=== PATIENT | male | born 1975 ===

== ENCOUNTER 2017-03-28 11:03 | Emergency (ER) | payer OTHER, SELFPAY ==
[2017-03-28 11:11] VITALS: BMI 29.9
[2017-03-28 11:45] VITALS: TEMP 98.9
--- NOTE | 2017-03-28 12:33 | ED PDOC ---
HPI: General Adult Time Seen by Provider: 03/28/17 11:18 Chief Complaint (Nursing): Chest Pain Chief Complaint (Provider): Chest Pain History Per: Patient History/Exam Limitations: no limitations Additional Complaint(s): 41 year old male with a past medical history of diabetes and hypertension who presents to the emergency department with a complaint of a chest "cramping" sensation that radiates all over the abdomen region with bilateral arm soreness for 3 days. Associated with lower back cramping, dizziness, lightheadedness, and a "heavy" head feeling. Patient is worried these are symptoms of a heart attack which is why he came to the emergency room. States Motrin helped with pain. Denies cough, urinary symptoms, or chest pain. Reports he had a fever which had resolved since. Of note, patient states on around 3pm he was taking a nap when he felt sudden shortness of breath with right back cramping pain while lying down. Past Medical History Reviewed: Historical Data, Nursing Documentation, Vital Signs Vital Signs: Last Vital Signs Temp 98.9 F 03/28/17 11:44 Pulse 76 03/28/17 17:09 Resp 17 03/28/17 17:09 BP 111/67 03/28/17 17:09 Pulse Ox 98 03/28/17 17:09 - Medical History PMH: Diabetes, HTN - Surgical History Surgical History: No Surg Hx - Family History Family History: States: No Known Family Hx - Allergies Allergies/Adverse Reactions: Allergies Allergy/AdvReac Type Severity Reaction Status Date / Time No Known Allergies Allergy Verified 03/28/17 11:13 Review of Systems ROS Statement: Except As Marked, All Systems Reviewed And Found Negative (As per HPI otherwise negative) Constitutional: Positive for: Fever (subjective), Other ("Heavy" head) Cardiovascular: Positive for: Other (Chest "cramps"). Negative for: Chest Pain Respiratory: Negative for: Cough Gastrointestinal: Positive for: Abdominal Pain (Cramps over the abdomen region) Genitourinary Male: Negative for: Dysuria, Frequency, Incontinence, Hematuria Musculoskeletal: Positive for: Back Pain (Cramps), Other (Bilateral arm soreness ) Neurological: Positive for: Dizziness (lightheadedness) Physical Exam - Reviewed Nursing Documentation Reviewed: Yes Vital Signs Reviewed: Yes - Physical Exam Appears: Positive for: Non-toxic, No Acute Distress Head Exam: Positive for: NORMAL INSPECTION, NORMOCEPHALIC Skin: Positive for: Normal Color, Warm, Dry Neck: Positive for: Normal, Supple Cardiovascular/Chest: Positive for: Regular Rate, Rhythm. Negative for: Murmur Respiratory: Positive for: Normal Breath Sounds. Negative for: Accessory Muscle Use, Wheezing, Respiratory Distress Gastrointestinal/Abdominal: Positive for: Normal Exam, Soft. Negative for: Tenderness Back: Positive for: Normal Inspection. Negative for: L CVA Tenderness, R CVA Tenderness Extremity: Positive for: Normal ROM. Negative for: Pedal Edema Neurologic/Psych: Positive for: Alert, Oriented (x3) - Laboratory Results Result Diagrams: 03/28/17 13:02 03/28/17 13:02 - ECG ECG: Positive for: Interpreted By Me, Viewed By Me ECG Rhythm: Positive for: Normal QRS, Normal ST Segment, Sinus Rhythm, Sinus Tachycardia Interpretation Of Abn EKG: LAD Rate: 101 O2 Sat by Pulse Oximetry: 99 (RA) Pulse Ox Interpretation: Normal Medical Decision Making Medical Decision Making: Time: 1223 Initial Impression: Chest pain and body aches. Differential includes acute coronary syndrome, pulmonary embolism, and musculoskeletal pain Initial Plan: EKG BMP Troponin I CBC w/ diff D Dimer Toradol 30 mg IVP Chest x-ray reevaluation EKG: Sinus tachycardia at 101 bpm with left axis deviation. Normal QRS. Normal ST segment. Time: 1302 --D-Dime, Quantitative: 141 --Troponin I: < 0.0120 --Random Glucose: 210 (High) Time: 1445 --Chest x-ray FINDINGS: LUNGS: Clear. PLEURA: No pneumothorax or pleural fluid seen. CARDIOVASCULAR: No radiographic findings to suggest acute or significant cardiovascular disease. OSSEOUS STRUCTURES: No significant abnormalities. VISUALIZED UPPER ABDOMEN: Normal. OTHER FINDINGS: None. IMPRESSION: No active disease. Scribe~Attestation: Documented by Xiao Stevens, acting as a scribe for Mejia Mar MD. Provider Scribe~Attestation: All medical record entries made by the Scribe were at my direction and personally dictated by me. I have reviewed the chart and agree that the record accurately reflects my personal performance of the history, physical exam, medical decision making, and the department course for this patient. I have also personally directed, reviewed, and agree with the discharge instructions and disposition. Disposition - Clinical Impression Clinical Impression: Chest pain, Arthralgia - Patient ED Disposition Is Patient to be Admitted: No Doctor Will See Patient In The: Office Counseled Patient/Family Regarding: Studies Performed, Diagnosis, Need For Followup - Disposition Referrals: [facility] [Outside] Disposition: Routine/Home Disposition Time: 16:34 Condition: GOOD Additional Instructions: Return for worsening. Follow up with your PCP in 2-3 days. Instructions: Chest Pain (ED) Print Language: CZECH FEDERICO Risk Score for UA/NSTEMI - FEDERICO Risk Score Age > 64: NO 3 or more CAD Risk Factors: NO Known CAD (Stenosis greater than 50%): NO Aspirin use in past 7 days: NO Severe Angina: NO EKG ST changes greater than 0.5mm: NO Positive Cardiac Marker: NO FEDERICO Score: 0 % risk at 14 days of: all cause mortality, new or recurrent NM, or severe recurrent ischemia requiring urgen revascularization: 5% Wells Criteria for PE - Wells Criteria for Pulmonary Embolism Clinical Signs and Symptoms of DVT: No P.E is #1 Diagnosis, or Equally Likely: No Heart Rate >100: No Immobilization at least 3 days;Surgery previous 4 weeks: No Previous, objectively diagnosed PE or DVT: No Hemoptysis: No Malignancy w/treatment within 6 months, or palliative: No Total Score: 0
[2017-03-28 13:09] LABS: BASO % 0.5 % (0.0-2.0); EOS % 0.1 % (0.0-4.0); HEMOGLOBIN 15.7 g/dL (12.0-18.0); MEAN CELL VOLUME 84.9 fl (80.0-94.0); MEAN CORPUSCULAR HEMOGLOBIN 28.4 pg (27.0-31.0); MEAN CORPUSCULAR HGB CONC 33.4 g/dL (33.0-37.0); MEAN PLATELET VOLUME 9.7 fl (7.2-11.7); MONO # 0.4 K/uL (0.0-0.8); MONO % 4.5 % (0.0-10.0); NEUT # 8.3 K/uL (1.8-7.0); NEUT % 84.9 % (50.0-75.0); RBC 5.52 Mil/uL (4.40-5.90); RED CELL DISTRIBUTION WIDTH 13.2 % (11.5-14.5); WHITE BLOOD COUNT 9.7 K/uL (4.8-10.8)
[2017-03-28 13:21] LABS: BLOOD UREA NITROGEN 8 mg/dl (9-20); CALCIUM 9.6 mg/dL (8.4-10.2); GFR AFRICAN-AMERICAN > 60; GFR NON-AFRICAN AMERICAN > 60
--- NOTE | 2017-03-28 14:46 | RAD ---
PROCEDURE: CHEST RADIOGRAPH, 1 VIEW HISTORY: chest pain COMPARISON: None available. FINDINGS: LUNGS: Clear. PLEURA: No pneumothorax or pleural fluid seen. CARDIOVASCULAR: No radiographic findings to suggest acute or significant cardiovascular disease. OSSEOUS STRUCTURES: No significant abnormalities. VISUALIZED UPPER ABDOMEN: Normal. OTHER FINDINGS: None. IMPRESSION: No active disease.
[2017-03-28 17:10] VITALS: BP 111/67; RESP 17
--- NOTE | 2017-03-29 13:13 | CARD ---
APPROVED REPORT EKG Measurement Heart [id number] <Conclusion> Sinus tachycardia Left axis deviation Abnormal ECG
[2017-03-30 12:47] VITALS: PULSE 101; O2SAT 99
== END 2017-03-28 17:09 | disposition home or self-care (01) ==
LOC: H.ER 11:03
DX: R07.9 Chest pain, unspecified (principal); E11.9 Type 2 diabetes mellitus without complications; I10 Essential (primary) hypertension; M25.50 Pain in unspecified joint
CPT/HCPCS: 71045; 80048; 82948; 84484; 85025; 85378; 93005; 96374; 99284; J1885

== ENCOUNTER 2017-03-30 22:12 | Observation (INO) | payer OTHER ==
[2017-03-30 22:12] VITALS: BMI 29.9
[2017-03-30] MEDS ORDERED: Nitroglycerin 2% Ointment Foilpak UD TOP STA (23:06)
[2017-03-30] MEDS ORDERED: Nitroglycerin 2% Ointment Foilpak UD TOP ONE (23:18)
[2017-03-30 23:20] LABS: BASO # 0.1 K/uL (0.0-0.2); BASO % 0.9 % (0.0-2.0); EOS # 0.1 K/uL (0.0-0.7); EOS % 1.2 % (0.0-4.0); HEMOGLOBIN 14.9 g/dL (12.0-18.0); LYMPH % 27.2 % (20.0-40.0); MEAN CELL VOLUME 84.4 fl (80.0-94.0); MEAN CORPUSCULAR HEMOGLOBIN 29.4 pg (27.0-31.0); MEAN CORPUSCULAR HGB CONC 34.9 g/dL (33.0-37.0); MEAN PLATELET VOLUME 9.1 fl (7.2-11.7); MONO # 0.5 K/uL (0.0-0.8); MONO % 6.5 % (0.0-10.0); NEUT # 4.7 K/uL (1.8-7.0); NEUT % 64.2 % (50.0-75.0); NRBC % 0.3 % (0.0-0.0); RBC 5.05 Mil/uL (4.40-5.90); WHITE BLOOD COUNT 7.3 K/uL (4.8-10.8)
--- NOTE | 2017-03-30 23:27 | ED PDOC ---
HPI: Chest Pain Time Seen by Provider: 03/30/17 22:27 Chief Complaint (Nursing): Chest Pain Chief Complaint (Provider): chest pain History Per: Patient History/Exam Limitations: no limitations Onset/Duration Of Symptoms: Days (3) Current Symptoms Are (Timing): Still Present Quality: "Pain", Other (cramping) Associated Symptoms: denies: Nausea, Dyspnea, Diaphoresis, Syncope Additional Complaint(s): Seen 3 days ago for same Radiating to LEFT arm and associated with lightheadedness Past Medical History Reviewed: Historical Data, Nursing Documentation, Vital Signs Vital Signs: Last Vital Signs Temp 98.6 F 03/31/17 19:05 Pulse 80 03/31/17 19:05 Resp 20 03/31/17 19:05 BP 113/66 03/31/17 19:05 Pulse Ox 98 03/31/17 19:05 - Medical History PMH: Diabetes, HTN - Surgical History Surgical History: Appendectomy - Family History Family History: States: Hypertension - Social History Current smoker - smoking cessation education provided: No - Home Medications Home Medications: Ambulatory Orders Medication Instructions Recorded Losartan/Hydrochlorothiazide 1 tab PO DAILY 03/31/17 [Losartan-Hctz 50-12.5 mg Tab] Metformin HCl [Glucophage] 500 mg PO BID 03/31/17 - Allergies Allergies/Adverse Reactions: Allergies Allergy/AdvReac Type Severity Reaction Status Date / Time No Known Allergies Allergy Verified 03/31/17 00:46 Review of Systems ROS Statement: Except As Marked, All Systems Reviewed And Found Negative (and as per HPI) Cardiovascular: Positive for: Chest Pain, Light Headedness Physical Exam - Reviewed Nursing Documentation Reviewed: Yes Vital Signs Reviewed: Yes - Physical Exam Appears: Positive for: Non-toxic, No Acute Distress Head Exam: Positive for: ATRAUMATIC, NORMOCEPHALIC Skin: Positive for: Warm, Dry Eye Exam: Positive for: EOMI, PERRL ENT: Negative for: Pharyngeal Erythema, Tonsillar Exudate Neck: Positive for: Painless ROM, Supple Cardiovascular/Chest: Positive for: Regular Rate, Rhythm, Chest Non Tender. Negative for: Murmur Respiratory: Positive for: Normal Breath Sounds. Negative for: Wheezing, Respiratory Distress Gastrointestinal/Abdominal: Positive for: Soft. Negative for: Tenderness, Mass , Distended, Guarding Back: Positive for: Normal Inspection. Negative for: Decreased ROM Extremity: Positive for: Normal ROM. Negative for: Deformity Lymphatic: Negative for: Adenopathy Neurologic/Psych: Positive for: Alert. Negative for: Motor/Sensory Deficits - Laboratory Results Result Diagrams: 03/30/17 23:17 03/30/17 23:17 - ECG ECG: Positive for: Interpreted By Me ECG Rhythm: Positive for: Normal QRS, Normal ST Segment, Sinus Rhythm O2 Sat by Pulse Oximetry: 98 Pulse Ox Interpretation: Normal - Radiology X-Ray: Interpreted by Me X-Ray Interpretation: No Acute Disease - Progress ED Course And Treament: Pt needs hospitalization for chest pain with cardiac risk factors, need serial enzymes Disposition - Clinical Impression Clinical Impression: Chest pain Discussed With : Evan Cheng Doctor Will See Patient In The: Hospital Counseled Patient/Family Regarding: Studies Performed, Diagnosis - Disposition Disposition Time: 23:00 Condition: FAIR - Pt Status Changed To: Hospital Disposition Of: Observation - POA Present On Arrival: None
[2017-03-30 23:44] LABS: ALB/GLOB RATIO 1.2 (1.0-2.1); ALT/SGPT 83 U/L (21-72); AST/SGOT 31 U/L (17-59); B-TYPE NATRIURETIC PEPTIDE 30.6 pg/ml (0-450); BLOOD UREA NITROGEN 13 mg/dl (9-20); CALCIUM 9.3 mg/dL (8.4-10.2); GFR AFRICAN-AMERICAN > 60; GFR NON-AFRICAN AMERICAN > 60; MAGNESIUM 1.9 MG/DL (1.6-2.3)
[2017-03-30 23:47] LABS: BARBITURATES, UR NEGATIVE (NEGATIVE); BENZODIAZEPINES, UR NEGATIVE (NEGATIVE); OPIATES, UR NEGATIVE (NEGATIVE); PHENCYCLIDINE, UR NEGATIVE (NEGATIVE)
[2017-03-31] MEDS ORDERED: Influenza Vaccine 18yr & older 0.5 ML/45 MCG SYR IM ONE (03:58)
[2017-03-31] MEDS ORDERED: Pneumococcal 23-Valent Vaccine IM ONE (03:58)
[2017-03-31] MEDS: HCTZ/Losartan 12.5/50 Tab PO SCH (10:12)
--- NOTE | 2017-03-31 11:10 | RAD ---
HISTORY: chest pain COMPARISON: 03/28/2017. TECHNIQUE: Chest PA and lateral FINDINGS: LUNGS: No active pulmonary disease. PLEURA: No significant pleural effusion identified. No pneumothorax apparent. CARDIOVASCULAR: Normal. OSSEOUS STRUCTURES: No significant abnormalities. VISUALIZED UPPER ABDOMEN: Normal. OTHER FINDINGS: None. IMPRESSION: No active disease. No significant interval change compared to the prior examination(s).
--- NOTE | 2017-03-31 16:39 | CARD ---
APPROVED REPORT EXAM: Two-dimensional and M-mode echocardiogram with Doppler and color Doppler. Other Information Quality : GoodRhythm : NSR INDICATION Chest Pain 2D DIMENSIONS IVSd1.19 (0.7-1.1cm)LVDd4.59 (3.9-5.9cm) LVOT Diameter1.88 (1.8-2.4cm)PWd1.09 (0.7-1.1cm) IVSs2.01 (0.8-1.2cm)LVDs2.20 (2.5-4.0cm) FS (%) 51.9 %PWs1.25 (0.8-1.2cm) LVEF (%)55.0 (>50%) M-Mode DIMENSIONS Left Atrium (MM)3.38 (2.5-4.0cm)IVSd1.53 (0.7-1.1cm) Aortic Root3.13 (2.2-3.7cm)LVDd5.12 (4.0-5.6cm) Aortic Cusp Exc.2.10 (1.5-2.0cm)PWd1.28 (0.7-1.1cm) IVSs1.10 cmFS (%) 25 % LVDs3.84 (2.0-3.8cm)PWs1.88 cm Mitral Valve MV E Yluetkjh35.3cm/sMV DECEL [id number] A Qbwoqzds88.0cm/s MV MZH26cuI/A ratio1.0MVA (PHT)4.31cm2 TDI Lateral E' Peak V11.98cm/sMedial E' Peak V10.10cm/sE/Lateral E'5.2 E/Medial E'6.2 Tricuspid Valve TR Peak Pdiexbgl279le/sTR Peak Gr.79cuWbMOII49kjCk LEFT VENTRICLE The left ventricle is normal size. There is normal left ventricular wall thickness. The left ventricular function is normal. The left ventricular ejection fraction is within the normal range. There is normal LV segmental wall motion. Transmitral Doppler flow pattern is Grade I-abnormal relaxation pattern. RIGHT VENTRICLE The right ventricle is normal size. There is normal right ventricular wall thickness. The right ventricular systolic function is normal. ATRIA The left atrium size is normal. The right atrium size is normal. AORTIC VALVE The aortic valve is normal in structure. No aortic regurgitation is present. There is no aortic valvular stenosis. MITRAL VALVE The mitral valve is mildly thickened. There is no mitral valve stenosis. There is no mitral valve regurgitation noted. TRICUSPID VALVE The tricuspid valve is normal in structure. There is no tricuspid valve regurgitation noted. PULMONIC VALVE The pulmonary valve is normal in structure. There is no pulmonic valvular regurgitation. GREAT VESSELS The aortic root is normal in size. The IVC was not visualized. PERICARDIAL EFFUSION The pericardium appears normal. <Conclusion> The left ventricle is normal size. There is normal left ventricular wall thickness. The left ventricular function is normal. The left ventricular ejection fraction is within the normal range. There is normal LV segmental wall motion. Transmitral Doppler flow pattern is Grade I-abnormal relaxation pattern.
--- NOTE | 2017-03-31 16:48 | CARD ---
APPROVED REPORT EKG Measurement Heart [id number] <Conclusion> Normal sinus rhythm Normal ECG
--- NOTE | 2017-03-31 18:26 | CP.PCM.CON ---
History of Present Illness - History of Present Illness History of Present Illness: I was asked to see patient by Dr Arreguin. Patient is a 41 year old male with PMH HTN, DM, who presents with chest pain. Symptoms occur with exertion, and are left sided. Cardiac enzymes are negative thus far. Review of Systems - Constitutional Constitutional: absent: As Per HPI, Anorexia, Chills, Daytime Sleepiness, Excessive Sweating, Fatigue, Fever, Frequent Falls, Headache, Increased Appetite , Lethargy, Malaise, Night Sweats, Snoring, Sleep Apnea, Weight Gain, Weight Loss, Weakness, Other - EENT Eyes: absent: As Per HPI, Blind Spots, Blurred Vision, Change in Vision, Decreased Night Vision, Diplopia, Discharge, Dry Eye, Exophthalmos, Floaters, Irritation, Itchy Eyes, Loss of Peripheral Vision, Pain, Photophobia, Requires Corrective Lenses, Sees Flashes, Spots in Vision, Tunnel Vision, Other Visual Disturbances, Loss of Vision, Other Nose/Mouth/Throat: absent: As Per HPI, Epistaxis, Nasal Congestion, Nasal Discharge, Nasal Obstruction, Nasal Trauma, Nose Pain, Post Nasal Drip, Sinus Pain, Sinus Pressure, Bleeding Gums, Change in Voice, Dental Pain, Dry Mouth, Dysphagia, Halitosis, Hoarsness, Lip Swelling, Mouth Lesions, Mouth Pain, Odynophagia, Sore Throat, Throat Swelling, Tongue Swelling, Facial Pain, Neck Pain, Neck Mass, Other - Cardiovascular Cardiovascular: Chest Pain - Respiratory Respiratory: absent: As Per HPI, Cough, Dyspnea, Hemoptysis, Dyspnea on Exertion , Wheezing, Snoring, Stridor, Pain on Inspiration, Chest Congestion, Excessive Mucous Production, Change in Mucous Color, Pain with Coughing, Other - Gastrointestinal Gastrointestinal: absent: As Per HPI, Abdominal Pain, Belching, Bloating, Change in Bowel Habits, Change in Stool Character, Coffee Ground Emesis, Constipation, Cramping, Diarrhea, Dyspepsia, Dysphagia, Early Satiety, Excessive Flatus, Fecal Incontinence, Heartburn, Hematemesis, Hematochezia, Loose Stools, Melena, Nausea, Odynophagia, Temesmus, Vomiting, Other - Genitourinary Genitourinary: absent: As Per HPI, Change in Urinary Stream, Difficulty Urinating, Dysuria, Flank Pain, Hematuria, Pyuria, Nocturia, Urinary Incontinence, Urinary Frequency, Urinary Hesitance, Urinary Urgency, Voiding Freq/Small Amts, Freq UTI, Hx Renal/Bladder Calculi, Hx /Renal Surgery, Bladder Distension, Other - Musculoskeletal Musculoskeletal: absent: As Per HPI, Abnormal Gait, Arthralgias, Atrophy, Back Pain, Deformity, Joint Swelling, Limited Range of Motion, Loss of Height, Muscle Cramps, Muscle Weakness, Myalgias, Neck Pain, Numbness, Radiating Pain into Limb, Stiffness, Tingling, Other - Integumentary Integumentary: absent: As Per HPI, Acne, Alopecia, Bleeding Lesions, Change in Hair, Change in Nails, Change in Pigmentation, Changing Lesions, Dry Skin, Erythema, Furuncle, Hirsutism, Lesions, New Lesions, Non-Healing Lesions, Photosensitivity, Pruritus, Rash, Skin Pain, Skin Ulcer, Sores, Striae, Swelling , Unusual Bruising, Wounds, Jaundice, Other - Neurological Neurological: absent: As Per HPI, Abnormal Gait, Abnormal Hearing, Abnormal Movements, Abnormal Speech, Behavioral Changes, Burning Sensations, Confusion, Convulsions, Disequilibrium, Dizziness, Numbness, Focal Weakness, Frequent Falls , Headaches, Lack of Coordination, Loss of Vision, Memory Loss, Paresthesias, Radicular Pain, Restless Legs, Sensory Deficit, Syncope, Tingling, Tremor, Vertigo, Weakness, Other Visual Disturbances, Other - Psychiatric Psychiatric: absent: As Per HPI, Abnormal Sleep Pattern, Anhedonia, Anxiety, Auditory Hallucinations, Behavioral Changes, Change in Appetite, Change in Libido, Confusion, Depression, Difficulty Concentrating, Hallucinations, Homicidal Ideation, Hopelessness, Irritability, Memory Loss, Mood Swings, Panic Attacks, Paranoia, Suicidal Ideation, Visual Hallucinations, Tactile Hallucinations, Other - Endocrine Endocrine: absent: As Per HPI, Change in Body Appearance, Change in Libido, Cold Intolorance, Deepening of Voice, Excessive Sweating, Fatigue, Flushing, Heat Intolorance, Increase in Ring/Shoe/Hat Size, Palpitations, Polydipsia, Polyphagia, Polyuria, Other - Hematologic/Lymphatic Hematologic: absent: As Per HPI, Easy Bleeding, Easy Bruising, Lymphadenopathy, Other Past Patient History - Past Medical History & Family History Past Medical History?: Yes - Past Social History Smoking Status: Never Smoked - CARDIAC Hx Hypertension: Yes - PULMONARY Hx Respiratory Disorders: No - NEUROLOGICAL Hx Neurological Disorder: No - HEENT Hx HEENT Problems: No - RENAL Hx Chronic Kidney Disease: No - ENDOCRINE/METABOLIC Hx Endocrine Disorders: Yes Hx Diabetes Mellitus Type 2: Yes - HEMATOLOGICAL/ONCOLOGICAL Hx Blood Disorders: No Hx AIDS: No Hx Human Immunodeficiency Virus (HIV): No - INTEGUMENTARY Hx Dermatological Problems: No - MUSCULOSKELETAL/RHEUMATOLOGICAL Hx Musculoskeletal Disorders: No Hx Falls: No - GASTROINTESTINAL Hx Gastrointestinal Disorders: No - GENITOURINARY/GYNECOLOGICAL Hx Genitourinary Disorders: No - PSYCHIATRIC Hx Psychophysiologic Disorder: No Hx Substance Use: No - SURGICAL HISTORY Hx Appendectomy: Yes - ANESTHESIA Hx Anesthesia: Yes Hx Anesthesia Reactions: No Hx Malignant Hyperthermia: No Has any member of the family had a problem w/ anesthesia?: No Meds Allergies/Adverse Reactions: Allergies Allergy/AdvReac Type Severity Reaction Status Date / Time No Known Allergies Allergy Verified 03/31/17 00:46 - Medications Medications: Current Medications HCTZ/Losartan Potassium (Hyzaar 12.5 Mg-50 Mg) 1 tab PO DAILY [facility] Last Admin: 03/31/17 10:12 Dose: 1 tab Metformin HCl (Glucophage) 500 mg PO BID [facility] Last Admin: 03/31/17 16:38 Dose: 500 mg Physical Exam - Constitutional Appears: Non-toxic - Head Exam Head Exam: NORMAL INSPECTION - Eye Exam Eye Exam: Normal appearance - ENT Exam ENT Exam: Mucous Membranes Moist - Neck Exam Neck exam: Positive for: Normal Inspection - Respiratory Exam Respiratory Exam: Clear to Auscultation Bilateral, NORMAL BREATHING PATTERN - Cardiovascular Exam Cardiovascular Exam: REGULAR RHYTHM - GI/Abdominal Exam GI & Abdominal Exam: Normal Bowel Sounds - Rectal Exam Rectal Exam: Deferred - Extremities Exam Extremities exam: Positive for: normal inspection, pedal pulses present. Negative for: joint swelling, pedal edema, tenderness - Back Exam Back exam: NORMAL INSPECTION - Neurological Exam Neurological exam: Alert, CN II-XII Intact, Oriented x3, Reflexes Normal - Psychiatric Exam Psychiatric exam: Normal Affect - Skin Skin Exam: Normal Color Results - Vital Signs Recent Vital Signs: Last Vital Signs Temp 98.4 F 03/31/17 15:42 Pulse 89 03/31/17 15:42 Resp 20 03/31/17 15:42 BP 103/61 03/31/17 15:42 Pulse Ox 97 03/31/17 15:42 - Labs Result Diagrams: 03/30/17 23:17 03/30/17 23:17 Labs: Laboratory Results - last 24 hr 03/30/17 03/30/17 03/30/17 23:17 23:17 23:29 WBC 7.3 RBC 5.05 Hgb 14.9 Hct 42.6 MCV 84.4 MCH 29.4 MCHC 34.9 RDW 13.0 Plt Count 147 MPV 9.1 Neut % (Auto) 64.2 Lymph % (Auto) 27.2 [place] % (Auto) 6.5 Eos % (Auto) 1.2 Baso % (Auto) 0.9 Neut # 4.7 Lymph # 2.0 [place] # 0.5 Eos # 0.1 Baso # 0.1 ESR 6 Sodium 139 Potassium 4.1 Chloride 100 Carbon Dioxide 27 Anion Gap 16 BUN 13 Creatinine 0.8 Est GFR ( Amer) > 60 Est GFR (Non-Af Amer) > 60 POC Glucose (mg/dL) Random Glucose 137 H Calcium 9.3 Phosphorus 4.1 Magnesium 1.9 Total Bilirubin 0.5 AST 31 ALT 83 H D Alkaline Phosphatase 91 Total Creatine Kinase 84 Troponin I < 0.0120 NT-Pro-B Natriuret Pep 30.6 Total Protein 7.3 Albumin 4.0 Globulin 3.2 Albumin/Globulin Ratio 1.2 Urine Opiates Screen Negative Urine Methadone Screen Negative Ur Barbiturates Screen Negative Ur Phencyclidine Scrn Negative Ur Amphetamines Screen Negative U Benzodiazepines Scrn Negative U Oth Cocaine Metabols Negative U Cannabinoids Screen Negative 03/31/17 03/31/17 03/31/17 05:24 10:38 11:16 WBC RBC Hgb Hct MCV MCH MCHC RDW Plt Count MPV Neut % (Auto) Lymph % (Auto) [place] % (Auto) Eos % (Auto) Baso % (Auto) Neut # Lymph # Florence # Eos # Baso # ESR Sodium Potassium Chloride Carbon Dioxide Anion Gap BUN Creatinine Est GFR ( Amer) Est GFR (Non-Af Amer) POC Glucose (mg/dL) 135 H 211 H Random Glucose Calcium Phosphorus Magnesium Total Bilirubin AST ALT Alkaline Phosphatase Total Creatine Kinase Troponin I < 0.0120 NT-Pro-B Natriuret Pep Total Protein Albumin Globulin Albumin/Globulin Ratio Urine Opiates Screen Urine Methadone Screen Ur Barbiturates Screen Ur Phencyclidine Scrn Ur Amphetamines Screen U Benzodiazepines Scrn U Oth Cocaine Metabols U Cannabinoids Screen 03/31/17 03/31/17 16:23 17:15 WBC RBC Hgb Hct MCV MCH MCHC RDW Plt Count MPV Neut % (Auto) Lymph % (Auto) [place] % (Auto) Eos % (Auto) Baso % (Auto) Neut # Lymph # [place] # Eos # Baso # ESR Sodium Potassium Chloride Carbon Dioxide Anion Gap BUN Creatinine Est GFR ( Amer) Est GFR (Non-Af Amer) POC Glucose (mg/dL) 153 H Random Glucose Calcium Phosphorus Magnesium Total Bilirubin AST ALT Alkaline Phosphatase Total Creatine Kinase Troponin I < 0.0120 NT-Pro-B Natriuret Pep Total Protein Albumin Globulin Albumin/Globulin Ratio Urine Opiates Screen Urine Methadone Screen Ur Barbiturates Screen Ur Phencyclidine Scrn Ur Amphetamines Screen U Benzodiazepines Scrn U Oth Cocaine Metabols U Cannabinoids Screen - EKG Data EKG Interpreted by: Myself EKG shows normal: Sinus rhythm Assessment & Plan (1) Chest pain Assessment and Plan: patient is a diabetic and therefore has risk factors for CAD. echocardigoram reveals normal left ventricular function. stress test tomorrow. If negative cand d/c home. Status: Acute
--- NOTE | 2017-03-31 20:23 | CP.PCM.HP ---
Past Patient History - Past Medical History & Family History Past Medical History?: Yes - Past Social History Smoking Status: Never Smoked - CARDIAC Hx Hypertension: Yes - PULMONARY Hx Respiratory Disorders: No - NEUROLOGICAL Hx Neurological Disorder: No - HEENT Hx HEENT Problems: No - RENAL Hx Chronic Kidney Disease: No - ENDOCRINE/METABOLIC Hx Endocrine Disorders: Yes Hx Diabetes Mellitus Type 2: Yes - HEMATOLOGICAL/ONCOLOGICAL Hx Blood Disorders: No Hx AIDS: No Hx Human Immunodeficiency Virus (HIV): No - INTEGUMENTARY Hx Dermatological Problems: No - MUSCULOSKELETAL/RHEUMATOLOGICAL Hx Musculoskeletal Disorders: No Hx Falls: No - GASTROINTESTINAL Hx Gastrointestinal Disorders: No - GENITOURINARY/GYNECOLOGICAL Hx Genitourinary Disorders: No - PSYCHIATRIC Hx Psychophysiologic Disorder: No Hx Substance Use: No - SURGICAL HISTORY Hx Appendectomy: Yes - ANESTHESIA Hx Anesthesia: Yes Hx Anesthesia Reactions: No Hx Malignant Hyperthermia: No Has any member of the family had a problem w/ anesthesia?: No Meds Allergies/Adverse Reactions: Allergies Allergy/AdvReac Type Severity Reaction Status Date / Time No Known Allergies Allergy Verified 03/31/17 00:46 Results - Vital Signs Recent Vital Signs: Last Vital Signs Temp 98.6 F 03/31/17 19:05 Pulse 80 03/31/17 19:05 Resp 20 03/31/17 19:05 BP 113/66 03/31/17 19:05 Pulse Ox 98 03/31/17 19:43 - Labs Result Diagrams: 03/30/17 23:17 03/30/17 23:17 Labs: Laboratory Results - last 24 hr 03/30/17 03/30/17 03/30/17 23:17 23:17 23:29 WBC 7.3 RBC 5.05 Hgb 14.9 Hct 42.6 MCV 84.4 MCH 29.4 MCHC 34.9 RDW 13.0 Plt Count 147 MPV 9.1 Neut % (Auto) 64.2 Lymph % (Auto) 27.2 [place] % (Auto) 6.5 Eos % (Auto) 1.2 Baso % (Auto) 0.9 Neut # 4.7 Lymph # 2.0 [place] # 0.5 Eos # 0.1 Baso # 0.1 ESR 6 Sodium 139 Potassium 4.1 Chloride 100 Carbon Dioxide 27 Anion Gap 16 BUN 13 Creatinine 0.8 Est GFR ( Amer) > 60 Est GFR (Non-Af Amer) > 60 POC Glucose (mg/dL) Random Glucose 137 H Calcium 9.3 Phosphorus 4.1 Magnesium 1.9 Total Bilirubin 0.5 AST 31 ALT 83 H D Alkaline Phosphatase 91 Total Creatine Kinase 84 Troponin I < 0.0120 NT-Pro-B Natriuret Pep 30.6 Total Protein 7.3 Albumin 4.0 Globulin 3.2 Albumin/Globulin Ratio 1.2 Urine Opiates Screen Negative Urine Methadone Screen Negative Ur Barbiturates Screen Negative Ur Phencyclidine Scrn Negative Ur Amphetamines Screen Negative U Benzodiazepines Scrn Negative U Oth Cocaine Metabols Negative U Cannabinoids Screen Negative 03/31/17 03/31/17 03/31/17 05:24 10:38 11:16 WBC RBC Hgb Hct MCV MCH MCHC RDW Plt Count MPV Neut % (Auto) Lymph % (Auto) [place] % (Auto) Eos % (Auto) Baso % (Auto) Neut # Lymph # [place] # Eos # Baso # ESR Sodium Potassium Chloride Carbon Dioxide Anion Gap BUN Creatinine Est GFR ( Amer) Est GFR (Non-Af Amer) POC Glucose (mg/dL) 135 H 211 H Random Glucose Calcium Phosphorus Magnesium Total Bilirubin AST ALT Alkaline Phosphatase Total Creatine Kinase Troponin I < 0.0120 NT-Pro-B Natriuret Pep Total Protein Albumin Globulin Albumin/Globulin Ratio Urine Opiates Screen Urine Methadone Screen Ur Barbiturates Screen Ur Phencyclidine Scrn Ur Amphetamines Screen U Benzodiazepines Scrn U Oth Cocaine Metabols U Cannabinoids Screen 03/31/17 03/31/17 16:23 17:15 WBC RBC Hgb Hct MCV MCH MCHC RDW Plt Count MPV Neut % (Auto) Lymph % (Auto) [place] % (Auto) Eos % (Auto) Baso % (Auto) Neut # Lymph # [place] # Eos # Baso # ESR Sodium Potassium Chloride Carbon Dioxide Anion Gap BUN Creatinine Est GFR ( Amer) Est GFR (Non-Af Amer) POC Glucose (mg/dL) 153 H Random Glucose Calcium Phosphorus Magnesium Total Bilirubin AST ALT Alkaline Phosphatase Total Creatine Kinase Troponin I < 0.0120 NT-Pro-B Natriuret Pep Total Protein Albumin Globulin Albumin/Globulin Ratio Urine Opiates Screen Urine Methadone Screen Ur Barbiturates Screen Ur Phencyclidine Scrn Ur Amphetamines Screen U Benzodiazepines Scrn U Oth Cocaine Metabols U Cannabinoids Screen
[2017-04-01 05:09] LABS: HEMOGLOBIN 15.6 g/dL (12.0-18.0); MEAN CELL VOLUME 85.2 fl (80.0-94.0); MEAN CORPUSCULAR HEMOGLOBIN 29.5 pg (27.0-31.0); MEAN CORPUSCULAR HGB CONC 34.7 g/dL (33.0-37.0); RBC 5.27 Mil/uL (4.40-5.90); RED CELL DISTRIBUTION WIDTH 12.8 % (11.5-14.5); WHITE BLOOD COUNT 8.4 K/uL (4.8-10.8)
[2017-04-01 05:34] LABS: ALB/GLOB RATIO 1.3 (1.0-2.1); ALBUMIN 4.2 g/dL (3.5-5.0); ALT/SGPT 71 U/L (21-72); AST/SGOT 22 U/L (17-59); BLOOD UREA NITROGEN 13 mg/dl (9-20); CALCIUM 9.6 mg/dL (8.4-10.2); GFR AFRICAN-AMERICAN > 60; GFR NON-AFRICAN AMERICAN > 60
[2017-04-01] MEDS: HCTZ/Losartan 12.5/50 Tab PO SCH (08:45)
--- NOTE | 2017-04-01 16:13 | CP.PCM.PCO ---
Physician Communication Note - Physician Communication Note Physician Communication Note: normal stress test. Patient is stable for discharge
[2017-04-01 16:33] VITALS: BP 122/72; PULSE 95; RESP 14; TEMP 97.9; O2SAT 96
--- NOTE | 2017-04-01 21:15 | CP.PCM.DIS ---
Provider - Provider Date of Admission: 03/31/17 00:09 Attending physician: Heri Arreguin MD Hospital Course - Lab Results Lab Results: Most Recent Lab Values WBC 8.4 K/uL (4.8-10.8) 04/01/17 04:20 RBC 5.27 Mil/uL (4.40-5.90) 04/01/17 04:20 Hgb 15.6 g/dL (12.0-18.0) 04/01/17 04:20 Hct 44.9 % (35.0-51.0) 04/01/17 04:20 MCV 85.2 fl (80.0-94.0) 04/01/17 04:20 MCH 29.5 pg (27.0-31.0) 04/01/17 04:20 MCHC 34.7 g/dL (33.0-37.0) 04/01/17 04:20 RDW 12.8 % (11.5-14.5) 04/01/17 04:20 Plt Count 148 K/uL (130-400) 04/01/17 04:20 MPV 9.1 fl (7.2-11.7) 03/30/17 23:17 Neut % (Auto) 64.2 % (50.0-75.0) 03/30/17 23:17 Lymph % (Auto) 27.2 % (20.0-40.0) 03/30/17 23:17 [place] % (Auto) 6.5 % (0.0-10.0) 03/30/17 23:17 Eos % (Auto) 1.2 % (0.0-4.0) 03/30/17 23:17 Baso % (Auto) 0.9 % (0.0-2.0) 03/30/17 23:17 Neut # 4.7 K/uL (1.8-7.0) 03/30/17 23:17 Lymph # 2.0 K/uL (1.0-4.3) 03/30/17 23:17 [place] # 0.5 K/uL (0.0-0.8) 03/30/17 23:17 Eos # 0.1 K/uL (0.0-0.7) 03/30/17 23:17 Baso # 0.1 K/uL (0.0-0.2) 03/30/17 23:17 ESR 6 mm/hr (0-15) 03/30/17 23:17 Sodium 139 mmol/l (132-148) 04/01/17 04:20 Potassium 4.8 MMOL/L (3.6-5.0) 04/01/17 04:20 Chloride 99 mmol/L (98-107) 04/01/17 04:20 Carbon Dioxide 31 mmol/L (22-30) H 04/01/17 04:20 Anion Gap 14 (10-20) 04/01/17 04:20 BUN 13 mg/dl (9-20) 04/01/17 04:20 Creatinine 0.9 mg/dl (0.8-1.5) 04/01/17 04:20 Est GFR ( Amer) > 60 04/01/17 04:20 Est GFR (Non-Af Amer) > 60 04/01/17 04:20 POC Glucose (mg/dL) 181 mg/dL (65-110) H 04/01/17 15:50 Random Glucose 190 mg/dL (75-110) H 04/01/17 04:20 Calcium 9.6 mg/dL (8.4-10.2) 04/01/17 04:20 Phosphorus 4.1 mg/dl (2.5-4.5) 03/30/17 23:17 Magnesium 1.9 MG/DL (1.6-2.3) 03/30/17 23:17 Total Bilirubin 0.8 mg/dl (0.2-1.3) 04/01/17 04:20 AST 22 U/L (17-59) 04/01/17 04:20 ALT 71 U/L (21-72) 04/01/17 04:20 Alkaline Phosphatase 74 U/L (38-126) 04/01/17 04:20 Total Creatine Kinase 84 U/L (55-170) 03/30/17 23:17 Troponin I < 0.0120 ng/mL (0.00-0.120) 03/31/17 17:15 NT-Pro-B Natriuret Pep 30.6 pg/ml (0-450) 03/30/17 23:17 Total Protein 7.5 G/DL (6.3-8.2) 04/01/17 04:20 Albumin 4.2 g/dL (3.5-5.0) 04/01/17 04:20 Globulin 3.3 gm/dL (2.2-3.9) 04/01/17 04:20 Albumin/Globulin Ratio 1.3 (1.0-2.1) 04/01/17 04:20 Urine Opiates Screen Negative (NEGATIVE) 03/30/17 23:29 Urine Methadone Screen Negative (NEGATIVE) 03/30/17 23:29 Ur Barbiturates Screen Negative (NEGATIVE) 03/30/17 23:29 Ur Phencyclidine Scrn Negative (NEGATIVE) 03/30/17 23:29 Ur Amphetamines Screen Negative (NEGATIVE) 03/30/17 23:29 U Benzodiazepines Scrn Negative (NEGATIVE) 03/30/17 23:29 U Oth Cocaine Metabols Negative (NEGATIVE) 03/30/17 23:29 U Cannabinoids Screen Negative (NEGATIVE) 03/30/17 23:29 Discharge Exam - Head Exam Head Exam: ATRAUMATIC, NORMOCEPHALIC Discharge Plan - Follow Up Plan Condition: FAIR Disposition: HOME/ ROUTINE
--- NOTE | 2017-04-03 14:51 | CARD ---
APPROVED REPORT Protocol: KERWIN Test Type: Treadmill Stress Test Attending Physician: Dr. DR. COLLINS Referring Physician: Dr. DR. COLLINS Technologist: Yesenia Holm Test Indications: chest pain Medications: Losartan/HCTZ 50-12.5mg Metformin 500mg Medical History: Diabetes, HTN, Appendectomy Target HR: 179 bpm Resting ECG: normal Resting Heart Rate: 116 bpm Resting Blood Pressure: 156/94mmHg submaximum (85%): 152 bpm TEST SUMMARY [id number]/94.0. [id number]:[id number]/94.0. PRETESTHYPERV.00:030.00.01.417976/94.0. PRETESTWARM-UP23:[id number]/94.0. EXERCISESTAGE 103:001.710.04.2045184/80.0. EXERCISESTAGE 203:[id number]/82.0. EXERCISESTAGE 303:[id number]/76.0. EXERCISESTAGE 401:[id number]/76.0. IMXTOVMB46:[id number]/82.0. POST EXERCISE Reason for Termination: Target heart rate achieved Target HR: NoMax HR: 155 bpm87% of Maximum Predicted HR: 179 bpm Exercise duration: 4 Stage10:00 min:secExercise capacity: 11.7METs Max Blood Pressure: 184/80mmHg Blood Pressure response to exercise: normal resting BP - appropriate response Heart Rate response to exercise: appropriate Chest Pain: NononeAngina index: 0 Arrhythmia: Nonone ST Change: NononeDeviation: 0 mm INTERPRETATION Stress EKG Conclusion: 41 y/o male with chest pain Resting EKG: normal; HR: 116; BP: 156/94 He exercised for 10:00 minutes with Kerwin protocol attaining a HR 155 which is 87% of MPHR; BP: 184/80 ; workload 11.7 METs. There was no ST changes or chest pain IMP: Normal Stress Test
== END 2017-04-01 16:30 | disposition home or self-care (01) ==
LOC: H.ER 22:12 → H.ERHOLD 03-31 00:09 → H.TEL 03-31 01:43
PROVIDERS: ADMIT Internal Medicine; ATTEND Internal Medicine
DX: R07.9 Chest pain, unspecified (principal); E11.9 Type 2 diabetes mellitus without complications; I10 Essential (primary) hypertension; Z23 Encounter for immunization
CPT/HCPCS: 36415; 71046; 80053; 80324; 80345; 80346; 80349; 80353; 80358; 80361; 82550; 82948; 83735; 83880; 83992; 84100; 84484; 85025; 85027; 85651; 90471; 90732; 93005; 93017; 93306; 99282; G0378; Q2035

== ENCOUNTER 2017-04-15 18:38 | Emergency (ER) | payer OTHER, SELFPAY ==
[2017-04-15 18:38] VITALS: BMI 29.9
[2017-04-15 18:48] VITALS: RESP 16
[2017-04-15 21:35] LABS: BASO % 0.5 % (0.0-2.0); EOS % 0.5 % (0.0-4.0); HEMOGLOBIN 14.5 g/dL (12.0-18.0); LYMPH # 2.1 K/uL (1.0-4.3); LYMPH % 24.9 % (20.0-40.0); MEAN CELL VOLUME 83.9 fl (80.0-94.0); MEAN CORPUSCULAR HEMOGLOBIN 29.2 pg (27.0-31.0); MEAN CORPUSCULAR HGB CONC 34.8 g/dL (33.0-37.0); MEAN PLATELET VOLUME 9.2 fl (7.2-11.7); MONO # 0.4 K/uL (0.0-0.8); MONO % 5.4 % (0.0-10.0); NEUT # 5.6 K/uL (1.8-7.0); NEUT % 68.7 % (50.0-75.0); RBC 4.98 Mil/uL (4.40-5.90); WHITE BLOOD COUNT 8.2 K/uL (4.8-10.8)
--- NOTE | 2017-04-15 21:37 | ED PDOC ---
HPI: Chest Pain Time Seen by Provider: 04/15/17 21:04 Chief Complaint (Nursing): Chest Pain Chief Complaint (Provider): Chest/arm pain History Per: Patient History/Exam Limitations: no limitations Onset/Duration Of Symptoms: Days (3) Additional Complaint(s): Pt presents with c/o L sided chest pain radiating to L upper arm, relieved with ASA and Advil. Denies SOB, palpitations, nausea, vomiting, paresthesias, weakness. Past Medical History Vital Signs: Last Vital Signs Temp 98.4 F 04/15/17 18:46 Pulse 76 04/15/17 18:46 Resp 16 04/15/17 18:46 BP 152/86 H 04/15/17 18:46 Pulse Ox 100 04/15/17 23:31 - Medical History PMH: Diabetes, HTN Denies: HIV, Chronic Kidney Disease - Surgical History Surgical History: Appendectomy - Family History Family History: States: Unknown Family Hx, Hypertension - Social History Current smoker - smoking cessation education provided: No - Home Medications Home Medications: Ambulatory Orders Medication Instructions Recorded Losartan/Hydrochlorothiazide 1 tab PO DAILY 03/31/17 [Losartan-Hctz 50-12.5 mg Tab] Metformin HCl [Glucophage] 500 mg PO BID 03/31/17 Naproxen [Naprosyn] 500 mg PO BID PRN #15 tablet 04/15/17 - Allergies Allergies/Adverse Reactions: Allergies Allergy/AdvReac Type Severity Reaction Status Date / Time No Known Allergies Allergy Verified 03/31/17 00:46 Review of Systems Constitutional: Negative for: Fever, Chills Cardiovascular: Positive for: Chest Pain. Negative for: Palpitations Respiratory: Negative for: Cough, Shortness of Breath Gastrointestinal: Negative for: Nausea, Vomiting, Abdominal Pain, Diarrhea Musculoskeletal: Positive for: Arm Pain. Negative for: Neck Pain, Back Pain Skin: Negative for: Rash, Lesions Physical Exam - Reviewed Nursing Documentation Reviewed: Yes Vital Signs Reviewed: Yes - Physical Exam Appears: Positive for: Well, No Acute Distress Skin: Positive for: Normal Color, Warm, Dry Eye Exam: Positive for: Normal appearance, EOMI, PERRL Cardiovascular/Chest: Positive for: Regular Rate, Rhythm Respiratory: Positive for: Normal Breath Sounds Extremity: Positive for: Normal ROM, Capillary Refill (<2 sec), Other ( Sensation intact, FROM @ shoulder). Negative for: Tenderness, Pedal Edema, Deformity, Swelling Neurologic/Psych: Positive for: Alert, gauger chief delivery II-XII, Oriented. Negative for: Motor/Sensory Deficits - Laboratory Results Result Diagrams: 04/15/17 21:31 04/15/17 21:31 - ECG O2 Sat by Pulse Oximetry: 100 Medical Decision Making Medical Decision Makin yo with chest and arm pain. - labs - EKG Pt admitted on 03/31/17 for chest pain with cardiac workup: Accession No. : [id number] Patient Name / ID : SANDEEP ROBLES / [id number] Exam Date : 03/31/2017 10:27:55 ( Approved ) Study Comment : Sex / Age : M / 41Y Creator : imer palma Dictator : Survey Questionnaire Designer : [employer] : Parvez Jeong Approver2 : Report Date : 03/31/2017 10:52:42 My Comment : APPROVED REPORT EXAM: Two-dimensional and M-mode echocardiogram with Doppler and color Doppler. Other Information Quality : Good Rhythm : NSR INDICATION Chest Pain 2D DIMENSIONS IVSd 1.19 (0.7-1.1cm) LVDd 4.59 (3.9-5.9cm) LVOT Diameter 1.88 (1.8-2.4cm) PWd 1.09 (0.7-1.1cm) IVSs 2.01 (0.8-1.2cm) LVDs 2.20 (2.5-4.0cm) FS (%) 51.9 % PWs 1.25 (0.8-1.2cm) LVEF (%) 55.0 (>50%) M-Mode DIMENSIONS Left Atrium (MM) 3.38 (2.5-4.0cm) IVSd 1.53 (0.7-1.1cm) Aortic Root 3.13 (2.2-3.7cm) LVDd 5.12 (4.0-5.6cm) Aortic Cusp Exc. 2.10 (1.5-2.0cm) PWd 1.28 (0.7-1.1cm) IVSs 1.10 cm FS (%) 25 % LVDs 3.84 (2.0-3.8cm) PWs 1.88 cm Mitral Valve MV E Velocity 62.3cm/s MV DECEL TIME 176ms MV A Velocity 65.0cm/s MV PHT 51ms E/A ratio 1.0 MVA (PHT) 4.31cm2 TDI Lateral E' Peak V 11.98cm/s Medial E' Peak V 10.10cm/s E/Lateral E' 5.2 E/Medial E' 6.2 Tricuspid Valve TR Peak Velocity 178cm/s TR Peak Gr. 13mmHg RVSP 23mmHg LEFT VENTRICLE The left ventricle is normal size. There is normal left ventricular wall thickness. The left ventricular function is normal. The left ventricular ejection fraction is within the normal range. There is normal LV segmental wall motion. Transmitral Doppler flow pattern is Grade I-abnormal relaxation pattern. RIGHT VENTRICLE The right ventricle is normal size. There is normal right ventricular wall thickness. The right ventricular systolic function is normal. ATRIA The left atrium size is normal. The right atrium size is normal. AORTIC VALVE The aortic valve is normal in structure. No aortic regurgitation is present. There is no aortic valvular stenosis. MITRAL VALVE The mitral valve is mildly thickened. There is no mitral valve stenosis. There is no mitral valve regurgitation noted. TRICUSPID VALVE The tricuspid valve is normal in structure. There is no tricuspid valve regurgitation noted. PULMONIC VALVE The pulmonary valve is normal in structure. There is no pulmonic valvular regurgitation. GREAT VESSELS The aortic root is normal in size. The IVC was not visualized. PERICARDIAL EFFUSION The pericardium appears normal. <Conclusion> The left ventricle is normal size. There is normal left ventricular wall thickness. The left ventricular function is normal. The left ventricular ejection fraction is within the normal range. There is normal LV segmental wall motion. Transmitral Doppler flow pattern is Grade I-abnormal relaxation pattern. Accession No. : [id number] Patient Name / ID : SANDEEP ROBLES / [id number] Exam Date : 04/01/2017 09:45:45 ( Approved ) Study Comment : Sex / Age : M / 41Y Creator : Yesenia Holm Dictator : Survey Questionnaire Designer : [employer] : layne Daugherty Approver2 : Report Date : 04/01/2017 13:08:57 My Comment : APPROVED REPORT Protocol: ESTEBAN Test Type: Treadmill Stress Test Attending Physician: Dr. DR. COLLINS Referring Physician: Dr. DR. COLLINS Technologist: Yesenia Holm Test Indications: chest pain Medications: Losartan/HCTZ 50-12.5mg Metformin 500mg Medical History: Diabetes, HTN, Appendectomy Target HR: 179 bpm Resting ECG: normal Resting Heart Rate: 116 bpm Resting Blood Pressure: 156/94mmHg submaximum (85%): 152 bpm TEST SUMMARY PRETEST SUPINE 00:02 0.0 0.0 1.0 88 156/94 . 0 . PRETEST STANDING 00:02 0.0 0.0 1.0 89 156/94 . 0 . PRETEST HYPERV. 00:03 0.0 0.0 1.0 90 156/94 . 0 . PRETEST WARM-UP 23:46 1.0 0.0 1.7 117 156/94 . 0 . EXERCISE STAGE 1 03:00 1.7 10.0 4.6 118 152/80 . 0 . EXERCISE STAGE 2 03:00 2.5 12.0 7.0 133 174/82 . 0 . EXERCISE STAGE 3 03:00 3.4 14.0 10.1 127 184/76 . 0 . EXERCISE STAGE 4 01:00 4.2 16.0 11.7 155 184/76 . 0 . RECOVERY 03:18 0.0 0.0 1.0 126 176/82 . 0 . POST EXERCISE Reason for Termination: Target heart rate achieved Target HR: No Max HR: 155 bpm 87% of Maximum Predicted HR : 179 bpm Exercise duration: 4 Stage 10:00 min:sec Exercise capacity: 11.7METs Max Blood Pressure: 184/80mmHg Blood Pressure response to exercise: normal resting BP - appropriate response Heart Rate response to exercise: appropriate Chest Pain: No none Angina index: 0 Arrhythmia: No none ST Change: No none Deviation: 0 mm INTERPRETATION Stress EKG Conclusion: 41 y/o male with chest pain Resting EKG: normal; HR: 116; BP: 156/94 He exercised for 10:00 minutes with Esteban protocol attaining a HR 155 which is 87% of MPHR; BP: 184/80 ; workload 11.7 METs. There was no ST changes or chest pain IMP: Normal Stress Test Disposition - Clinical Impression Clinical Impression: Arm pain, superior, Atypical chest pain - Patient ED Disposition Is Patient to be Admitted: No - Disposition Referrals: [facility] [Outside] Disposition: Routine/Home Disposition Time: 23:30 Condition: STABLE Prescriptions: Naproxen [Naprosyn] 500 mg PO BID PRN #15 tablet PRN Reason: Pain, Moderate (4-7) Instructions: Chest Pain (ED), Arm Pain (ED) Print Language: ALBANIAN
[2017-04-15 22:03] LABS: ALB/GLOB RATIO 1.3 (1.0-2.1); ALBUMIN 4.1 g/dL (3.5-5.0); ALT/SGPT 75 U/L (21-72); AST/SGOT 32 U/L (17-59); BLOOD UREA NITROGEN 11 mg/dl (9-20); CALCIUM 9.4 mg/dL (8.4-10.2); GFR AFRICAN-AMERICAN > 60; GFR NON-AFRICAN AMERICAN > 60
[2017-04-16 00:07] VITALS: TEMP 98; O2SAT 98
[2017-04-16 04:20] VITALS: BP 151/73; PULSE 73
--- NOTE | 2017-04-17 09:47 | CARD ---
APPROVED REPORT EKG Measurement Heart [id number] <Conclusion> Normal sinus rhythm Normal ECG
== END 2017-04-16 00:08 | disposition home or self-care (01) ==
LOC: H.ER 18:38
DX: R07.89 Other chest pain (principal); I10 Essential (primary) hypertension; E11.9 Type 2 diabetes mellitus without complications
CPT/HCPCS: 80053; 82550; 84484; 85025; 93005; 96374; 99283; J1885

== ENCOUNTER 2017-04-22 05:48 | Emergency (ER) | payer SELFPAY ==
[2017-04-22 06:05] VITALS: BMI 26.4
[2017-04-22 06:08] VITALS: RESP 16; O2SAT 98
[2017-04-22 06:43] LABS: BASO % 0.6 % (0.0-2.0); EOS % 0.3 % (0.0-4.0); HEMOGLOBIN 15.2 g/dL (12.0-18.0); LYMPH # 1.3 K/uL (1.0-4.3); LYMPH % 17.5 % (20.0-40.0); MEAN CELL VOLUME 84.2 fl (80.0-94.0); MEAN CORPUSCULAR HEMOGLOBIN 28.8 pg (27.0-31.0); MEAN CORPUSCULAR HGB CONC 34.2 g/dL (33.0-37.0); MEAN PLATELET VOLUME 9.3 fl (7.2-11.7); MONO # 0.4 K/uL (0.0-0.8); MONO % 5.4 % (0.0-10.0); NEUT # 5.6 K/uL (1.8-7.0); NEUT % 76.2 % (50.0-75.0); NRBC % 0.3 % (0.0-0.0); RBC 5.28 Mil/uL (4.40-5.90); RED CELL DISTRIBUTION WIDTH 13.2 % (11.5-14.5); WHITE BLOOD COUNT 7.3 K/uL (4.8-10.8)
[2017-04-22 06:58] LABS: ALB/GLOB RATIO 1.3 (1.0-2.1); ALBUMIN 4.4 g/dL (3.5-5.0); ALT/SGPT 69 U/L (21-72); AST/SGOT 33 U/L (17-59); BLOOD UREA NITROGEN 8 mg/dl (9-20); CALCIUM 9.4 mg/dL (8.4-10.2); GFR AFRICAN-AMERICAN > 60; GFR NON-AFRICAN AMERICAN > 60
[2017-04-22 07:03] LABS: PARTIAL THROMBOPLASTIN TIME 31.6 Seconds (25.6-37.1); PROTHROMBIN TIME 11.6 Seconds (9.8-13.1)
[2017-04-22 07:05] LABS: B-TYPE NATRIURETIC PEPTIDE 61.7 pg/ml (0-450)
--- NOTE | 2017-04-22 07:41 | ED PDOC ---
- Laboratory Results Result Diagrams: 04/22/17 06:20 04/22/17 06:20 Interpretation Of Abn Labs: no acute - ECG ECG: Positive for: Interpreted By Me, Viewed By Me ECG Rhythm: Positive for: Normal QRS, Normal ST Segment, Sinus Rhythm O2 Sat by Pulse Oximetry: 98 Pulse Ox Interpretation: Normal - Radiology X-Ray: Interpreted by Me, Viewed By Me X-Ray Interpretation: No Acute Disease - Progress ED Course And Treament: 740: Here with chest pain. Fu on re-eval. 933: Stable. AAOx3. Pain free. Here multiple times for the same. Has had stress that is neg per charts recently. 956: Stable. AAOx3. Pain free. Spoke with Dr. Natarajan. Made aware of normal stress test on 03/31/17. States with that and neg trop/no acute st/t changes, not likely cardiac. Pt. can be dc and fu. Disposition - Clinical Impression Clinical Impression: Chest pain - POA Present On Arrival: None - Disposition Referrals: Taqueria Phan MD [Primary Care Provider] - 04/23/17 Disposition: Routine/Home Disposition Time: 09:58 Condition: STABLE Additional Instructions: Return if not better in 3 days. Instructions: Chest Pain (ED) Forms: [employer] (Thai)
--- NOTE | 2017-04-22 07:44 | ED PDOC ---
HPI: Chest Pain Time Seen by Provider: 04/22/17 06:10 Chief Complaint (Nursing): Chest Pain Chief Complaint (Provider): chest pain History Per: Patient History/Exam Limitations: no limitations Current Symptoms Are (Timing): Still Present Associated Symptoms: denies: Dyspnea, Diaphoresis Exacerbating Factors: Turning, Movement, Deep Breathing Additional Complaint(s): 41yo male c/o left sided chest pain radiating to left arm which kept him from effective sleep overnight. Symptoms associated with dizziness, denies syncope, fever, cough, exertional dyspnea or headache. Has been seen several times over last 3 weeks for similar symptoms, had stress test w Dr Natarajan per prior note normal. Past Medical History Reviewed: Historical Data, Nursing Documentation, Vital Signs Vital Signs: Last Vital Signs Temp 98.3 F 04/22/17 06:06 Pulse 88 04/22/17 06:38 Resp 16 04/22/17 06:06 BP 134/84 04/22/17 06:38 Pulse Ox 98 04/22/17 06:06 - Medical History PMH: Diabetes, HTN, Hyperlipidemia Denies: HIV, Chronic Kidney Disease - Surgical History Surgical History: Appendectomy - Family History Family History: States: Unknown Family Hx, Hypertension - Home Medications Home Medications: Ambulatory Orders Medication Instructions Recorded Losartan/Hydrochlorothiazide 1 tab PO DAILY 03/31/17 [Losartan-Hctz 50-12.5 mg Tab] Metformin HCl [Glucophage] 500 mg PO BID 03/31/17 Naproxen [Naprosyn] 500 mg PO BID PRN #15 tablet 04/15/17 - Allergies Allergies/Adverse Reactions: Allergies Allergy/AdvReac Type Severity Reaction Status Date / Time No Known Allergies Allergy Verified 04/22/17 06:05 Review of Systems ROS Statement: Except As Marked, All Systems Reviewed And Found Negative Constitutional: Negative for: Fever, Chills ENT: Negative for: Nose Discharge, Throat Pain Cardiovascular: Positive for: Chest Pain, Palpitations. Negative for: Orthopnea Respiratory: Negative for: Cough, Shortness of Breath Gastrointestinal: Negative for: Nausea, Vomiting, Abdominal Pain Genitourinary Male: Negative for: Dysuria Musculoskeletal: Negative for: Neck Pain Skin: Negative for: Rash, Lesions, Jaundice Neurological: Negative for: Weakness, Numbness, Headache Physical Exam - Reviewed Nursing Documentation Reviewed: Yes Vital Signs Reviewed: Yes - Physical Exam Appears: Positive for: Well, Non-toxic, No Acute Distress Head Exam: Positive for: ATRAUMATIC, NORMAL INSPECTION, NORMOCEPHALIC Skin: Positive for: Normal Color, Warm, DRY Eye Exam: Positive for: EOMI, Normal appearance, PERRL ENT: Positive for: Normal ENT Inspection Neck: Positive for: Normal, Painless ROM Cardiovascular/Chest: Positive for: Regular Rate, Rhythm Respiratory: Positive for: CNT, Normal Breath Sounds Pulses-Radial (L): 2+ Pulses-Radial (R): 2+ Gastrointestinal/Abdominal: Positive for: Bowel Sounds, Soft. Negative for: Tenderness Back: Positive for: Normal Inspection Extremity: Positive for: Normal ROM Neurologic/Psych: Positive for: Alert, Oriented - Laboratory Results Result Diagrams: 04/22/17 06:20 04/22/17 06:20 - ECG ECG: Positive for: Interpreted By Me ECG Rhythm: Positive for: Normal QRS, Normal ST Segment, Sinus Rhythm, Nonspecific Changes Rate: 78 O2 Sat by Pulse Oximetry: 98 Pulse Ox Interpretation: Normal Medical Decision Making Medical Decision Making: patient appears anxious, given neg dynamic testing trial dose xanax 0.5mg pt takes ASA at home/ Disposition - Clinical Impression Clinical Impression: Acute chest pain - Patient ED Disposition Is Patient to be Admitted: Transfer of Care - Disposition Referrals: Taqueria Phan MD [Primary Care Provider] - Disposition Time: 07:00 Condition: STABLE Forms: [facility] (Slovenian) Patient Signed Over To: Jhoan Griffith Handoff Comments: d/w cardio/labs/re-eval
[2017-04-22 08:00] VITALS: BP 133/85; PULSE 83; TEMP 99
--- NOTE | 2017-04-22 11:24 | RAD ---
HISTORY: chest pain COMPARISON: Comparison is made with 03/30/2017 TECHNIQUE: Chest PA and lateral FINDINGS: LUNGS: No active pulmonary disease. PLEURA: No significant pleural effusion identified. No pneumothorax apparent. CARDIOVASCULAR: Normal. OSSEOUS STRUCTURES: No significant abnormalities. VISUALIZED UPPER ABDOMEN: Normal. OTHER FINDINGS: None. IMPRESSION: No active disease.
--- NOTE | 2017-04-22 17:07 | CARD ---
APPROVED REPORT EKG Measurement Heart [id number] [id number] <Conclusion> Normal sinus rhythm Normal ECG
== END 2017-04-22 10:44 | disposition home or self-care (01) ==
LOC: H.ER 05:48
DX: R07.9 Chest pain, unspecified (principal); E11.9 Type 2 diabetes mellitus without complications; E78.5 Hyperlipidemia, unspecified; I10 Essential (primary) hypertension

== ENCOUNTER 2017-06-20 04:05 | Emergency (ER) | payer SELFPAY ==
[2017-06-20 04:05] VITALS: BMI 26.4
[2017-06-20 04:43] VITALS: PULSE 84; RESP 16
--- NOTE | 2017-06-20 04:50 | ED PDOC ---
HPI: General Adult Time Seen by Provider: 06/20/17 04:26 Chief Complaint (Nursing): Dizziness/Lightheaded History Per: Patient History/Exam Limitations: clinical condition Onset/Duration Of Symptoms: Days Current Symptoms Are (Timing): Better Severity: Mild Recently: Seen In ED, Treated By A Physician Additional Complaint(s): Hx of DM, HLD, HTN p/w multiple complaints, states that he has had a rash for 3 days on his R inner thigh, itchy, red, and slightly swollen. Unsure of how he obtained rash, states that he may have intially scratched his skin in the middle of the night. Denies exposure to insects or animals. No fevers/chills. Also states that since March has had intermittent chest pain and palpitations, states that the chest pain goes away with advil. Also states that he experiences neck pain when he sleeps in awkward positions and feels the pain upon awaking but goes away on its own. Also c/o of back pain but none currently, states he's had it for weeks and was told it was muscular but was concerned about his kidneys, but denies any urinary symptoms. Past Medical History Reviewed: Historical Data, Nursing Documentation, Vital Signs Vital Signs: Last Vital Signs Temp 98.3 F 06/20/17 04:39 Pulse 84 06/20/17 04:39 Resp 16 06/20/17 04:39 BP 151/91 H 06/20/17 04:39 Pulse Ox 98 06/20/17 07:15 - Medical History PMH: Diabetes, HTN, Hyperlipidemia Denies: HIV, Chronic Kidney Disease - Surgical History Surgical History: Appendectomy - Family History Family History: States: Unknown Family Hx, Hypertension - Home Medications Home Medications: Ambulatory Orders Medication Instructions Recorded Losartan/Hydrochlorothiazide 1 tab PO DAILY 03/31/17 [Losartan-Hctz 50-12.5 mg Tab] Metformin HCl [Glucophage] 1,000 mg PO BID 03/31/17 - Allergies Allergies/Adverse Reactions: Allergies Allergy/AdvReac Type Severity Reaction Status Date / Time No Known Allergies Allergy Verified 04/22/17 06:05 Review of Systems ROS Statement: Except As Marked, All Systems Reviewed And Found Negative Physical Exam - Reviewed Nursing Documentation Reviewed: Yes Vital Signs Reviewed: Yes - Physical Exam Appears: Positive for: Well, Non-toxic, No Acute Distress Head Exam: Positive for: ATRAUMATIC, NORMAL INSPECTION, NORMOCEPHALIC Skin: Positive for: Rash (RLE, upper inner thigh with scattered punctate rash, non-vesicular, nonblanching, appears excoriated, each are 2-3mm, mild swelling, mild surroudnign ertyhema, no streaking) Eye Exam: Positive for: EOMI, Normal appearance, PERRL ENT: Positive for: Normal ENT Inspection Neck: Positive for: Normal, Painless ROM Cardiovascular/Chest: Positive for: Regular Rate, Rhythm Respiratory: Positive for: CNT, Normal Breath Sounds Gastrointestinal/Abdominal: Positive for: Normal Exam, Soft Back: Positive for: Normal Inspection Extremity: Positive for: Normal ROM Neurologic/Psych: Positive for: Alert, Oriented - Laboratory Results Result Diagrams: 06/20/17 05:10 06/20/17 05:10 - ECG ECG Rhythm: Positive for: Normal QRS, Normal ST Segment, Sinus Rhythm O2 Sat by Pulse Oximetry: 98 Pulse Ox Interpretation: Normal Medical Decision Making Medical Decision Makin A/P: Hx of DM, HTN, HLD p/w multiple likely unrelated complaints -rash: likely mild cellulitis 2/2 to scratching or possible bug bites, will treat with clindamycin given diabetic -neck pain: likely related to pattern of sleeping, patient has no neck pain now , supple, FROM- no acute intervention required at this time -back pain: none now, will check urine for blood and Cr to reassrue patient that is not related to kidneys -ongoing cp/palpitations: patient has negative EKG, will check troponin to assess for acs, although unlikley -overall patient seems anxious and admits that he didn't want to wait till July to see his PMD, Dr. Riggins -will get labs and likely discharge patient to f/u w/ PMD 7AM Patient feeling better, no longer having dizziness, explained results to patient and advised patient to f/u w/ PMD in 1 -2 days. Return precautions discussed. Disposition - Clinical Impression Clinical Impression: Dizziness - Patient ED Disposition Is Patient to be Admitted: No - Disposition Referrals: Taqueria Phan MD [Primary Care Provider] - Disposition: Routine/Home Disposition Time: 07:19 Condition: IMPROVED Instructions: Dizziness, Nonvertigo, (DC) Forms: [employer] (Syrian) Print Language: [place]LAND[place]
[2017-06-20 05:13] LABS: HEMOGLOBIN 15.3 g/dL (12.0-18.0); MEAN CORPUSCULAR HEMOGLOBIN 30.2 pg (27.0-31.0); MEAN CORPUSCULAR HGB CONC 35.1 g/dL (33.0-37.0); RBC 5.07 Mil/uL (4.40-5.90); RED CELL DISTRIBUTION WIDTH 13.3 % (11.5-14.5); WHITE BLOOD COUNT 5.3 K/uL (4.8-10.8)
[2017-06-20 05:21] LABS: BLOOD UREA NITROGEN 9 mg/dl (9-20); CALCIUM 9.4 mg/dL (8.4-10.2); GFR AFRICAN-AMERICAN > 60; GFR NON-AFRICAN AMERICAN > 60
[2017-06-20 06:06] LABS: URINE BACTERIA RARE (<OCC); URINE BILIRUBIN NEGATIVE (NEGATIVE); URINE BLOOD NEGATIVE (NEGATIVE); URINE CLARITY CLOUDY (Clear); URINE COLOR YELLOW (YELLOW); URINE GLUCOSE (UA) NEG (Normal); URINE LEUKOCYTE ESTERASE NEG Leu/uL (Negative); URINE PROTEIN NEGATIVE (NEGATIVE); URINE UROBILINOGEN 0.2-1.0 mg/dL (0.2-1.0)
--- NOTE | 2017-06-20 07:15 | ED PDOC ---
- Laboratory Results Result Diagrams: 06/20/17 05:10 06/20/17 05:10 - ECG O2 Sat by Pulse Oximetry: 98 Medical Decision Making Medical Decision Making: received patient from Dr. Mcdaniel. Patient is pending results of labs for evaluation of h/o back pain. pending result of UA. 8.30a - UA negative. will d/c as planned. Disposition Doctor Will See Patient In The: Office Counseled Patient/Family Regarding: Diagnosis, Need For Followup, Rx Given - Clinical Impression Clinical Impression: Dizziness, Cellulitis - POA Present On Arrival: None - Disposition Referrals: Taqueria Phan MD [Primary Care Provider] - Disposition: Routine/Home Disposition Time: 08:39 Condition: IMPROVED Prescriptions: Clindamycin [Cleocin] 300 mg PO TID 7 Days cap Instructions: Cellulitis (Skin Infection), Adult (DC), Dizziness, Nonvertigo, ( DC) Forms: [facility] (Sami), [facility] ED School/Work Excuse Print Language: ESTONIAN
[2017-06-20 08:50] VITALS: BP 128/84; TEMP 98.5; O2SAT 99
--- NOTE | 2017-06-20 18:09 | CARD ---
APPROVED REPORT EKG Measurement Heart [id number] <Conclusion> Normal sinus rhythm Normal ECG
== END 2017-06-20 08:45 | disposition home or self-care (01) ==
LOC: H.ER 04:05
DX: L03.116 Cellulitis of left lower limb (principal); R42 Dizziness and giddiness; E11.9 Type 2 diabetes mellitus without complications; E78.5 Hyperlipidemia, unspecified; I10 Essential (primary) hypertension

== ENCOUNTER 2017-07-12 05:42 | Emergency (ER) | payer SELFPAY ==
[2017-07-12 05:43] VITALS: BMI 26.4
[2017-07-12 05:50] VITALS: BP 159/90; PULSE 77; RESP 18; TEMP 97.9
[2017-07-12 06:18] VITALS: O2SAT 99
--- NOTE | 2017-07-12 09:23 | ED PDOC ---
Lower Extremity Pain/Injury Time Seen by Provider: 07/12/17 07:21 Chief Complaint (Nursing): Abnormal Skin Integrity Chief Complaint (Provider): Abnormal Skin Integrity and Leg Pain History Per: Patient History/Exam Limitations: no limitations Onset/Duration Of Symptoms: Days (x 21) Current Symptoms Are (Timing): Still Present Additional Complaint(s): 42 years old male with history of hypertension and diabetes presents to the ED with right thigh pain for 3 days and rash onset 3 weeks. Patient reports additional rash started 1 week ago. He states he was seen here in the ED 3 weeks ago and was prescribed antibiotics. Patient denies any fever, weakness, numbness, back pain or abdominal pain as well as taking any medication for pain. PMD: non provided Past Medical History Reviewed: Historical Data, Nursing Documentation, Vital Signs Vital Signs: Last Vital Signs Temp 97.9 F 07/12/17 06:13 Pulse 77 07/12/17 06:13 Resp 18 07/12/17 05:49 BP 159/90 H 07/12/17 06:13 Pulse Ox 99 07/12/17 06:13 - Medical History PMH: Diabetes, HTN, Hypercholesterolemia, Hyperlipidemia Denies: HIV, Chronic Kidney Disease - Surgical History Surgical History: Appendectomy - Family History Family History: States: Unknown Family Hx, Hypertension - Social History Current smoker - smoking cessation education provided: No Alcohol: None Drugs: Denies - Home Medications Home Medications: Ambulatory Orders Medication Instructions Recorded Losartan/Hydrochlorothiazide 1 tab PO DAILY 03/31/17 [Losartan-Hctz 50-12.5 mg Tab] Metformin HCl [Glucophage] 1,000 mg PO BID 03/31/17 Clindamycin [Cleocin] 300 mg PO TID 7 Days cap 06/20/17 Acyclovir [Zovirax] 800 mg PO 5XD #35 tablet 07/12/17 - Allergies Allergies/Adverse Reactions: Allergies Allergy/AdvReac Type Severity Reaction Status Date / Time No Known Allergies Allergy Verified 04/22/17 06:05 Review of Systems ROS Statement: Except As Marked, All Systems Reviewed And Found Negative Constitutional: Negative for: Fever Gastrointestinal: Negative for: Abdominal Pain Musculoskeletal: Positive for: Leg Pain (Right thigh). Negative for: Back Pain Skin: Positive for: Rash (On right thigh) Neurological: Negative for: Weakness, Numbness Physical Exam - Reviewed Nursing Documentation Reviewed: Yes Vital Signs Reviewed: Yes - Physical Exam Appears: Positive for: Non-toxic, No Acute Distress Head Exam: Positive for: ATRAUMATIC, NORMOCEPHALIC Skin: Positive for: Rash (on right thigh) Eye Exam: Positive for: EOMI Extremity: Positive for: Normal ROM. Negative for: Tenderness, Swelling Neurologic/Psych: Positive for: Alert, Oriented - ECG O2 Sat by Pulse Oximetry: 99 (RA) Pulse Ox Interpretation: Normal Medical Decision Making Medical Decision Making: Time: 0850 Initial Impression: Rash in right leg and pain in right thigh. Differential includes but not limited to shingles associated with musculoskeletal pain. Scribe Attestation: Documented by Shikha Bell, acting as a scribe for Mejia Mar MD. Provider Scribe Attestation: All medical record entries made by the Scribe were at my direction and personally dictated by me. I have reviewed the chart and agree that the record accurately reflects my personal performance of the history, physical exam, medical decision making, and the department course for this patient. I have also personally directed, reviewed, and agree with the discharge instructions and disposition. Disposition - Clinical Impression Clinical Impression: Shingles, Leg pain - Disposition Referrals: [facility] [place] [Outside] Disposition: Routine/Home Disposition Time: 09:00 Condition: GOOD Additional Instructions: Take motrin for pain. Follow up with your PCP in 2-3 days. Prescriptions: Acyclovir [Zovirax] 800 mg PO 5XD #35 tablet Instructions: Shingles, Muscle and Bone Pain (DC) Forms: [facility] (Bulgarian) Print Language: MOHAWK
== END 2017-07-12 09:05 | disposition home or self-care (01) ==
LOC: H.ER 05:42
DX: B02.9 Zoster without complications (principal); E11.9 Type 2 diabetes mellitus without complications; E78.00 Pure hypercholesterolemia, unspecified; I10 Essential (primary) hypertension

== ENCOUNTER 2017-12-03 08:18 | Emergency (ER) | payer SELFPAY ==
[2017-12-03 08:28] VITALS: O2SAT 98; BMI 30.5
--- NOTE | 2017-12-03 10:19 | CARD ---
APPROVED REPORT Date of service: 12/03/2017 EKG Measurement Heart [id number] ID [id number] <Conclusion> Normal sinus rhythm Normal ECG
[2017-12-03 10:37] LABS: BASO % 0.6 % (0.0-2.0); EOS % 0.3 % (0.0-4.0); HEMOGLOBIN 14.9 g/dL (12.0-18.0); LYMPH % 13.5 % (20.0-40.0); MEAN CELL VOLUME 85.4 fl (80.0-94.0); MEAN CORPUSCULAR HEMOGLOBIN 30.2 pg (27.0-31.0); MEAN CORPUSCULAR HGB CONC 35.4 g/dL (33.0-37.0); MEAN PLATELET VOLUME 9.9 fl (7.2-11.7); MONO # 0.3 K/uL (0.0-0.8); NEUT # 6.3 K/uL (1.8-7.0); NEUT % 81.6 % (50.0-75.0); RBC 4.93 Mil/uL (4.40-5.90); RED CELL DISTRIBUTION WIDTH 12.9 % (11.5-14.5); WHITE BLOOD COUNT 7.7 K/uL (4.8-10.8)
[2017-12-03 10:39] LABS: BLOOD UREA NITROGEN 12 mg/dl (9-20); CALCIUM 9.6 mg/dL (8.4-10.2); GFR NON-AFRICAN AMERICAN > 60
--- NOTE | 2017-12-03 10:40 | RAD ---
HISTORY: Chest pain COMPARISON: 04/22/2017. TECHNIQUE: Chest PA and lateral FINDINGS: LINES AND TUBES: None. LUNG AND PLEURA: The lungs are well inflated and clear. No pleural effusion or pneumothorax. HEART AND MEDIASTINUM: The heart is not enlarged. The hilar and mediastinal contours are within normal limits. SKELETAL STRUCTURES: The bony structures are within normal limits for the patient's age. VISUALIZED UPPER ABDOMEN: Normal. OTHER FINDINGS: None. IMPRESSION: No active pulmonary disease.
[2017-12-03 10:50] LABS: B-TYPE NATRIURETIC PEPTIDE 65.4 pg/ml (0-450)
--- NOTE | 2017-12-03 12:55 | ED PDOC ---
HPI: Chest Pain Time Seen by Provider: 12/03/17 08:50 Chief Complaint (Nursing): Chest Pain Chief Complaint (Provider): Chest Pain History Per: Patient History/Exam Limitations: no limitations Onset/Duration Of Symptoms: Days Current Symptoms Are (Timing): Still Present Severity: Mild Additional Complaint(s): 42 year old male with PMHx of HTN and diabetes presents to the ER for an evaluation of left sided chest pain onset last night. Patient reports the chest pain is radiating to his left arm. He states he has had this pain in the past. He has this pain once per week for last 6 months. Pain is not exertional. He was admitted earlier this year for similar pain to [facility]. Denies fever or difficulty breathing. PMD: [facility] Past Medical History Reviewed: Historical Data, Nursing Documentation, Vital Signs Vital Signs: Last Vital Signs Temp 98.3 F 12/03/17 14:16 Pulse 93 H 12/05/17 14:11 Resp 18 12/03/17 14:16 BP 122/79 12/03/17 14:16 Pulse Ox 98 12/05/17 14:11 - Medical History PMH: Diabetes, HTN, Hypercholesterolemia, Hyperlipidemia Denies: HIV, Chronic Kidney Disease - Surgical History Surgical History: Appendectomy - Family History Family History: States: Unknown Family Hx, Hypertension - Social History Current smoker - smoking cessation education provided: No Alcohol: None Drugs: Denies - Home Medications Home Medications: Ambulatory Orders Medication Instructions Recorded Losartan/Hydrochlorothiazide 1 tab PO DAILY 03/31/17 [Losartan-Hctz 50-12.5 mg Tab] Metformin HCl [Glucophage] 1,000 mg PO BID 03/31/17 Clindamycin [Cleocin] 300 mg PO TID 7 Days cap 06/20/17 Acyclovir [Zovirax] 800 mg PO 5XD #35 tablet 07/12/17 - Allergies Allergies/Adverse Reactions: Allergies Allergy/AdvReac Type Severity Reaction Status Date / Time No Known Allergies Allergy Verified 04/22/17 06:05 FEDERICO Risk Score for UA/NSTEMI - FEDERICO Risk Score Age > 64: NO 3 or more CAD Risk Factors: YES Known CAD (Stenosis greater than 50%): NO Aspirin use in past 7 days: NO Severe Angina: NO EKG ST changes greater than 0.5mm: NO Positive Cardiac Marker: NO FEDERICO Score: 1 Risk %: 5% Wells Criteria for PE - Wells Criteria for Pulmonary Embolism Clinical Signs and Symptoms of DVT: No P.E is #1 Diagnosis, or Equally Likely: No Heart Rate >100: No Immobilization at least 3 days;Surgery previous 4 weeks: No Previous, objectively diagnosed PE or DVT: No Hemoptysis: No Malignancy w/treatment within 6 months, or palliative: No Total Score: 0 Review of Systems ROS Statement: Except As Marked, All Systems Reviewed And Found Negative Constitutional: Negative for: Fever Cardiovascular: Positive for: Chest Pain Respiratory: Negative for: Shortness of Breath Musculoskeletal: Positive for: Arm Pain (left) Psych: Negative for: Suicidal ideation (homicidal ideation) Physical Exam - Reviewed Nursing Documentation Reviewed: Yes Vital Signs Reviewed: Yes - Physical Exam Appears: Positive for: Non-toxic, No Acute Distress Head Exam: Positive for: ATRAUMATIC, NORMAL INSPECTION, NORMOCEPHALIC Skin: Positive for: Normal Color, Warm, Dry. Negative for: Rash Eye Exam: Positive for: EOMI, Normal appearance, PERRL ENT: Positive for: Normal ENT Inspection Neck: Positive for: Normal, Painless ROM, Supple. Negative for: Decreased ROM Cardiovascular/Chest: Positive for: Regular Rate, Rhythm. Negative for: Murmur Respiratory: Positive for: Normal Breath Sounds. Negative for: Decreased Breath Sounds, Wheezing, Respiratory Distress Gastrointestinal/Abdominal: Positive for: Normal Exam, Soft. Negative for: Tenderness, Guarding, Rebound Back: Positive for: Normal Inspection. Negative for: L CVA Tenderness, R CVA Tenderness Extremity: Positive for: Normal ROM. Negative for: Tenderness, Pedal Edema, Deformity Neurologic/Psych: Positive for: Alert, Oriented (x3). Negative for: Motor/ Sensory Deficits - Laboratory Results Result Diagrams: 12/03/17 10:15 12/03/17 10:15 - ECG ECG Rhythm: Positive for: Normal QRS, Normal ST Segment, Sinus Rhythm Rate: 93 O2 Sat by Pulse Oximetry: 98 - Progress Re-evaluation Time: 13:00 Condition: Re-examined, Improved Medical Decision Making Medical Decision Making: Time: 940 Initial Impression: chest pain Differential Diagnosis includes but is not limited to: acute coronary disease, pulmonary embolism Initial Plan: --EKG --B-Type Natriuretic Peptide --BMP --Troponin I --CBC w/ Differential --D Dimer [COAG] --Chest Two Views [RAD] --Storage Worker --Reevaluation Time: 1039 TECHNIQUE: Chest PA and lateral FINDINGS: LINES AND TUBES: None. LUNG AND PLEURA: The lungs are well inflated and clear. No pleural effusion or pneumothorax. HEART AND MEDIASTINUM: The heart is not enlarged. The hilar and mediastinal contours are within normal limits. SKELETAL STRUCTURES: The bony structures are within normal limits for the patient's age. VISUALIZED UPPER ABDOMEN: Normal. OTHER FINDINGS: None. IMPRESSION: No active pulmonary disease. EKbpm, no ST changes, normal QRS, normal sinus rhythm 1300 Upon reevaluation chest pain resolved. Scribe Attestation: Documented by Chau Mayfield, acting as a scribe for Mejia Mar MD. Provider Scribe Attestation: All medical record entries made by the Scribe were at my direction and personally dictated by me. I have reviewed the chart and agree that the record accurately reflects my personal performance of the history, physical exam, medical decision making, and the department course for this patient. I have also personally directed, reviewed, and agree with the discharge instructions and disposition. Disposition - Clinical Impression Clinical Impression: Chest pain - Patient ED Disposition Is Patient to be Admitted: No Doctor Will See Patient In The: Office Counseled Patient/Family Regarding: Studies Performed, Diagnosis, Need For Followup - Disposition Referrals: [facility] [Outside] Disposition: Routine/Home Disposition Time: 14:00 Condition: GOOD Additional Instructions: MARGARET PRAKASH, thank you for letting us take care of you today. Your provider was Mejia Mar MD and you were treated for CHEST PAIN. The emergency medical care you received today was directed at your acute symptoms. If you were prescribed any medication, please fill it and take as directed. It may take several days for your symptoms to resolve. Return to the Emergency Department if your symptoms worsen, do not improve, or if you have any other problems. Please contact your doctor or call one of the physicians/clinics you have been referred to that are listed on the Patient Visit Information form that is included in your discharge packet. Bring any paperwork you were given at discharge with you along with any medications you are taking to your follow up visit. Our treatment cannot replace ongoing medical care by a primary care provider outside of the emergency department. Thank you for allowing the [facility] team to be part of your care today. If you had an X-Ray or CT scan: A Radiologist will review the ED reading if any change in treatment is needed we will contact you. If you had a blood, urine, or wound culture: It will take several days for the results, if any change in treatment is needed we will contact you. If you had an STI test: It will take 48 hours for the results. Please call after 1 week if you have not heard back. Instructions: Chest Pain Forms: [employer] (Romansh) Print Language: [place]
[2017-12-03 14:17] VITALS: BP 122/79; RESP 18; TEMP 98.3
[2017-12-05 14:09] VITALS: PULSE 93
== END 2017-12-03 14:15 | disposition home or self-care (01) ==
LOC: H.ER 08:18
DX: R07.89 Other chest pain (principal); E11.9 Type 2 diabetes mellitus without complications; E78.00 Pure hypercholesterolemia, unspecified; I10 Essential (primary) hypertension